=== PATIENT | female | born 1995 | race African-American/Black ===

== ENCOUNTER 2016-10-28 23:59 | Emergency (ER) | payer SELFPAY ==
--- NOTE | ~2016-10-28 | CT2 ---
[facility] A Service of [facility] [place] RADIOLOGY TEXT RESULTS PATIENT: DORIE ROTHMAN LOCATION: [place] : [birth year] UNIT #: [id number] AGE: [address]: BAR THURSTON APRN SEX: F ORDER DR: [id number] [facility]. [place], [place] [address] [id number] E MR#: [id number] Acc #: [id number] NAME: DORIE ROTHMAN : 1995 SEX: F STUDY DATE/TIME: 10/29/2016 3:00 UNIT: [facility] ROOM: STUDY DESCRIPTION: CT Abd and Pelv W Cont Attending Physician: Bar Thurston Aprn Ordering Physician: Bar Thurston Aprn Primary Care Physician: Primary Care Physician No MEDICAL IMAGING REPORT This report is preliminary unless electronic signature is present EXAM CT abdomen and pelvis with contrast date DATE: 10/29/2016 at 17:03 HISTORY Left side abdominal pain for one day. Diarrhea and vomiting this morning. COMPARISON None PROCEDURE 5 mm axial images from the lung bases through the lesser trochanters after intravenous contrast administration. Enteric contrast was not administered. Sagittal and coronal reformed images were obtained. The CT exam was performed with one or more of the following radiation dose reduction techniques: automatic exposure control, adjustment of mA and/or kV according to patient size, and iterative reconstruction. Abdomen findings: Lung bases are clear. The liver, gallbladder, spleen, pancreas, adrenals and kidneys are within normal limits. Limited evaluation bowel due to lack of enteric contrast. The appendix is normal. No abnormal large or small bowel dilation is seen. No free air free fluid is evident. Pelvis findings: Small quantity free fluid is demonstrated in the pelvis. Urinary bladder and rectum are normal. Multiple soft tissue nodular densities are demonstrate within the subcutaneous fat of the buttock regions and may represent injection granulomas. IMPRESSION 1. No acute findings within the abdomen and pelvis. The appendix is [facility] A Service of [facility] [place] RADIOLOGY TEXT RESULTS PATIENT: DORIE ROTHMAN LOCATION: [place] : 95 UNIT #: [id number] AGE: [address]: BAR THURSTON APRN SEX: F ORDER DR: normal. 2. Subcutaneous fat nodular densities within the bilateral buttock regions may represent injection granulomas. 3. Trace pelvic free fluid within the cul-de-sac is nonspecific and may be physiologic. Dictated by... Violet Boyd M.D. THIS IS AN ELECTRONICALLY VERIFIED REPORT Violet Boyd M.D. at 10/29/2016 10:25 PM [facility]/yanely TD: 10/29/2016 12:19 JOB #: [id number] MEDICAL IMAGING REPORT COPY
[2016-10-29 01:10] LABS: BASOPHIL% 0.6 % (0-2.5); EOSINOPHIL% 0.8 % (0.0-7.0); HEMOGLOBIN 13.7 gm/dL (12.0-16.0); LYMPHOCYTE# 0.6 X10e3 (1.0-3.5); LYMPHOCYTE% 12.7 % (17.0-45.0); MEAN CELL VOLUME 94.6 FL (83-96); MEAN CORPUSCULAR HEMOGLOBIN 31.7 PG (28-34); MEAN CORPUSCULAR HGB CONC 33.5 g/dL (30-36); MEAN PLATELET VOLUME 8.3 FL (6.5-11.5); MONOCYTE# 0.5 X10e3 (0-1.0); MONOCYTE% 9.8 % (3.0-12.0); NEUTROPHIL# 3.8 X10e3 (1.5-7.1); NEUTROPHIL% 76.1 % (40-75); PLATELET COUNT 289 X10e3 (140-420); RED BLOOD COUNT 4.33 X10e (3.90-5.30); RED CELL DISTRIBUTION WIDTH 14.1 % (11.0-15.5)
[2016-10-29 01:13] LABS: DIFF IND NO
[2016-10-29 01:16] LABS: URINE BILIRUBIN NEG (NEG); URINE BLOOD NEG (NEG); URINE GLUCOSE NORM (NORM); URINE KETONE NEG (NEG); URINE LEUKOCYTE ESTERASE NEG (NEG); URINE NITRATE POS (NEG); URINE PH 6.5 (5-8); URINE PROTEIN NEG (NEG); URINE SPECIFIC GRAVITY 1.015 (1.003-1.035); URINE UROBILINOGEN NORM (NORM)
[2016-10-29 01:23] LABS: URINE APPEARANCE CLEAR; URINE COLOR DK YELLOW
[2016-10-29 01:29] LABS: CULTURE INDICATED? YES
[2016-10-29 01:31] LABS: ALBUMIN SERUM 4.3 g/dL (3.5-5.0); ALKALINE PHOSPHATASE 54 U/L (32-92); ALT (SGPT) 26 U/L (10-40); AMYLASE 16 U/L (0-46); AST (SGOT) 27 U/L (10-42); BILIRUBIN, DIRECT 0.2 mg/dL (0.0-0.2); BILIRUBIN,INDIRECT 0.6 mg/dL (0.0-0.9); BILIRUBIN,TOTAL 0.8 mg/dL (0.2-2.0); BLOOD UREA NITROGEN 13 mg/dL (9-23); BUN/CREATININE RATIO 18.57; CARBON DIOXIDE 25 mmol/L (22-31); CHLORIDE 102 mmol/L (100-111); CREATININE SERUM 0.7 mg/dL (0.6-1.4); GLOM FILT RATE Estimated ABOVE60 mL/min (>60); GLUCOSE FASTING 91 mg/dL (70-110); LIPASE 19 U/L (22-51); POTASSIUM 3.5 mmol/L (3.5-5.1); PROTEIN TOTAL SERUM 7.5 g/dL (6.0-8.3); SODIUM 136 mmol/L (135-145)
[2016-10-29 01:34] LABS: URINE BACTERIA AUWI 3+ (NEGATIVE)
[2016-11-01 00:10] LABS: CHLAMYDIA TRACH Not Detected (Not Detected); N GONOR Not Detected (Not Detected)
== END 2016-10-29 04:21 | disposition home or self-care (01) ==
LOC: CED 23:59
PROVIDERS: Nurse Practitioner Family
DX: N39.0 Urinary tract infection, site not specified (principal); F32.9 Major depressive disorder, single episode, unspecified; F17.210 Nicotine dependence, cigarettes, uncomplicated
CPT/HCPCS: 36415; 74177; 80048; 80076; 81003; 82150; 83690; 84703; 85025; 87086; 87088; 87186; 87491; 87591; 87808; 87905; 96361; 96374; 96375; 99284; J1885; J2405; Q9967